=== PATIENT | female | born 1955 | race Caucasian/White ===

== ENCOUNTER 2021-10-16 19:41 | Emergency (ER) | payer MEDICARE | END 2021-10-16 20:39 | disposition home or self-care (01) | LOC: CSHERS 19:41 | DX: S80.11XA Contusion of right lower leg, initial encounter (principal); F32.A Depression, unspecified; M25.551 Pain in right hip; W18.11XA Fall from or off toilet without subsequent striking against object, initial encounter; Y93.E1 Activity, personal bathing and showering; Z79.899 Other long term (current) drug therapy | CPT/HCPCS: 99283 ==